=== PATIENT | female | born 1955 | race Caucasian/White ===

== ENCOUNTER 2017-01-07 07:21 | Day surgery (SDC) | payer OTHER ==
[2017-01-07] MEDS ORDERED: PROPOFOL 200 MG/20 ML VIAL IV ONE (08:00)
[2017-01-07] MEDS ORDERED: SALINE FLUSH 10 ML DISP.SYRIN IVF ONE (08:00)
[2017-01-07] MEDS ORDERED: LACTATED RINGERS 1,000 ML IV.SOLN IV ONE (08:00)
--- NOTE | 2017-01-07 09:57 | Operative Note ---
SURGEON: Chi Nelson MD ANESTHESIA: MAC anesthesia. ESTIMATED BLOOD LOSS: None. COMPLICATIONS: None. PREOPERATIVE DIAGNOSIS: Screening colonoscopy. POSTOPERATIVE DIAGNOSIS: Rectal polyps. PROCEDURE PERFORMED: Colonoscopy with snare polypectomy. DESCRIPTION OF THE PROCEDURE: Patient was brought to the endoscopy suite and placed in the left lateral decubitus position. Anesthesia was administered by the hand cloth cutter. A rectal examination was performed which was normal. The colonoscope was inserted and passed easily to the cecum. The appendiceal orifice and ileocecal valve were identified. The prep was excellent. The scope was slowly retracted being careful to inspect all jimenez. In the rectum, there were 2 sessile polyps, 1 approximately 7 mm, which was completely removed with a snare, and 1 approximately 1 cm, which was just above the dentate line, which was also completely removed with a snare. Both sides were hemostatic. There were no other findings or complications. The patient tolerated the procedure well. FINDINGS: Two small sessile polyps in the rectum and each completely removed with a snare. DISPOSITION: We will determine her follow up when we have her final pathology available. AUBRIE
== END 2017-01-07 07:22 ==
LOC: OPSURG 07:21
PROVIDERS: ATTEND Colon & Rectal Surgery
DX: Z12.11 Encounter for screening for malignant neoplasm of colon (principal); K62.1 Rectal polyp
CPT/HCPCS: 45385; 88305; J2704; J7120; S1016

== ENCOUNTER 2018-02-16 09:07 | Outpatient (CLI) | payer OTHER ==
[2018-02-16 10:07] LABS: eGFR (African) > 60; eGFR (Non-African) > 60
--- NOTE | 2018-02-16 17:49 | Diagnostic Imaging Report ---
SYD GUAJARDO [facility] [address] [facility] [address] [address] Report Submission Date: Feb 16, 2018 9:45:56 AM CDT Patient Study Name: LIONEL BENITEZ Date: Feb 16, 2018 9:22:21 AM CDT Modality Type: DX Gender: F Description: UPPER EXTREMITY : 55 Institution: [facility] Physician: SYD GUAJARDO Examination: Plain film left wrist History: LEFT WRIST, PAIN IN LEFT WRIST AFTER CATCHING SOMEONE THEY FELL ABOUT A WEEK AGO. PT STATES HX OF WRIST FX ABOUT 5 YEARS AGO (Hx) Comparison exams: None available Findings: 3 views the left wrist demonstrates generalized osteopenia. Old fracture deformity involving the distal radius. Old appearing ulna styloid avulsion. Articular degenerative changes. No acute appearing fracture. No dislocation. No soft tissue abnormality. Impression: Osteopenia, degenerative changes, and old fracture deformity. No acute appearing osseous process. Electronically signed on Feb 16, 2018 9:45:56 AM CDT by: Logan ALFRED
== END 2018-02-16 09:10 ==
LOC: RAD 09:07
PROVIDERS: ATTEND Family Medicine
DX: I10 Essential (primary) hypertension (principal); M25.532 Pain in left wrist
CPT/HCPCS: 36415; 73110; 80053

== ENCOUNTER 2018-07-06 11:28 | Outpatient (CLI) | payer OTHER ==
--- NOTE | 2018-07-06 19:27 | Diagnostic Imaging Report ---
CELY MCLEAN [facility] [address] [facility] [address] Report Submission Date: Jul 06, 2018 11:54:33 AM CDT Patient Study Name: LIONEL BENITEZ Date: Jul 06, 2018 11:30:02 AM CDT Modality Type: DX Gender: F Description: LOWER EXTREMITY : 55 Institution: [facility] Physician: CELY MCLEAN Examination: Plain film right History: RT 4TH TOE, PAIN IN RT 4TH DIGIT AFTER HYPEREXTENDING TOE ABOUT A WEEK AGO (Hx) Findings: 3 views of the right 4th digit demonstrates mild articular degenerative spurring. No fracture or dislocation. No soft tissue swelling. No joint effusion. Impression: No acute osseous process. Electronically signed on Jul 06, 2018 11:54:33 AM CDT by: Logan ALFRED
== END 2018-07-06 11:30 ==
LOC: RAD 11:28
PROVIDERS: ATTEND Family Medicine
DX: S99.921D Unspecified injury of right foot, subsequent encounter (principal); X58.XXXD Exposure to other specified factors, subsequent encounter
CPT/HCPCS: 73660